=== PATIENT | male | born 1975 | race Caucasian/White ===

== ENCOUNTER 2019-01-23 13:34 | Emergency (ER) | payer SELFPAY ==
[~2019-01-23] VITALS: Wt 78.0 kg
[2019-01-23 13:36] VITALS: BP 118/76; PULSE 79; RESP 18
[2019-01-23] MEDS ORDERED: ACETAMINOPHEN 325 MG TAB PO ONE (14:30)
[2019-01-23] MEDS ORDERED: IBUPROFEN 600 MG TAB PO ONE (14:30)
--- NOTE | 2019-01-23 15:35 | ERD ---
ER Documentation Chief Complaint Chief Complaint LEFT ANKLE PAIN HPI 43-year-old male, presents the emergency department, complaining of acute left ankle pain after sustaining a forced inversion injury when he jumped a fence yesterday. The pain is dull, constant, 6/10, associated with decreased range of motion. The patient denies distal weakness, numbness or tingling. ROS All systems reviewed and are negative except as per history of present illness. Medications Home Meds Active Scripts Acetaminophen* (Tylenol*) 325 Mg Tablet, 2 TAB PO Q6 PRN for PAIN AND OR ELEVATED TEMP, #20 TAB Prov:DENI CURIEL MD 01/23/19 Ibuprofen* (Motrin*) 600 Mg Tab, 600 MG PO Q6H PRN for PAIN AND OR ELEVATED TEMP, #20 TAB Prov:DENI CURIEL MD 01/23/19 Allergies Allergies: Coded Allergies: No Known Allergy (Unverified , 01/23/19) PMhx/Soc Medical and Surgical Hx: pt denies Medical Hx, pt denies Surgical Hx Hx Alcohol Use: Yes (occasional) Hx Substance Use: Yes (marijuana) Hx Tobacco Use: No FmHx Family History: No diabetes, No coronary disease Physical Exam Vitals Vital Signs Date Temp Pulse Resp B/P (MAP) Pulse Ox O2 O2 Flow FiO2 Time Delivery Rate 01/23/19 98.1 79 18 118/76 99 13:36 (90) Physical Exam Patient alert, oriented, vital signs stable. HEAD: Normocephalic, atraumatic. EYES: PERRLA, EOMI, Sclera and conjunctiva appear normal. NOSE: Clear and patent nostrils. EARS: Canals clear, tympanic membranes WNL. MOUTH: normal lips and tongue, no oral lesions. THROAT: Normal oropharynx, no tonsillar exudates. NECK: Supple, No lymphadenopathy. Full ROM without pain or tenderness. HEART: RRR, no rubs, murmurs, clicks or gallops. LUNGS: Clear to auscultation. ABDOMEN: Soft, non-tender without masses or hepatosplenomegaly. EXTREMITIES: Left ankle: Bimalleolar edema and tenderness, full passive range of motion, distal neurovascular exam intact. BACK: Full ROM, no deformity, normal back exam NEURO: Cranial nerves grossly intact, no motor or sensory deficit SKIN: No rashes, no petechia. Results 24 hrs Current Medications Medications Dose Sig/Rom Start Time Status Last (Trade) Ordered Route PRN Stop Time Admin Dose Reason Admin 650 mg ONCE ONCE 01/23/19 DC 01/23/19 Acetaminophen PO 14:30 01/23/19 14:22 (Tylenol 14:31 Tab) Ibuprofen 600 mg ONCE ONCE 01/23/19 DC 01/23/19 (Motrin) PO 14:30 01/23/19 14:21 14:31 Patient: CASH VAZQUEZ : 1975 Age: 43 Sex: M MR #: [id number] DOS: 01/23/19 1410 Ordering MD: DENI CURIEL MD Location: [facility] Room/Bed: PROCEDURE: XR left ankle. CLINICAL INDICATION: Ankle pain. TECHNIQUE: Three views of the ankle were obtained. COMPARISON: None. FINDINGS: There is subtle cortical irregularity of medial process of the talus. Remaining osseous structures are intact. No evidence of dislocation. There is marked ankle soft tissue swelling, most notable medially. IMPRESSION: 1. Subtle cortical irregularity of medial process of the talus, nondisplaced fracture cannot be excluded. 2. Marked soft tissue swelling, most notable medially. Procedures/MDM Acute left ankle pain: no red flags. Differential diagnosis include but not limited to: Ankle sprain/strain, ligament injury, arthritis; low suspicion for fracture, dislocation, septic arthritis. Neurovascular exam grossly intact. no clinical findings suggestive of acute infectious process, no deformity, no rashes. Pertinent Data: X-rays: No fracture or dislocation Physical examination and clinical presentation consistent most likely with left ankle sprain. During the ED course the patient received treatment with short leg posterior splint and crutches presenting overall improvement of the symptoms. Results and clinical impression discussed with patient who agrees with management. The patient is stable to be treated outpatient and will be discharged home with recommendations for ice, rest and partial immobilization. NSAIDs 3 times daily for 5 days and close monitoring. The patient was instructed to follow up with the primary care provider in the next 48h. If symptoms persist, worsen or new symptoms develop, then patient should return to the ED immediately. Instructions explained and given to patient with acknowledgment and demonstrated understanding. Disclaimer: Inadvertent spelling and grammatical errors are likely due to EHR/dictation software use and do not reflect on the overall quality of patient care. Also, please note that the electronic time recorded on this note does not necessarily reflect the actual time of the patient encounter. Departure Diagnosis: Primary Impression: Left ankle sprain Condition: Stable Patient Instructions: Self-Care for Strains and Sprains Additional Instructions: Thank you very much for allowing us to participate in your care. Your health and safety is our top priority at [facility]. Call your primary care doctor TOMORROW for an appointment during the next 2-4 days and bring all the information provided. Have prescriptions filled and follow precisely the directions on the label. If the symptoms get worse and your provider is unavailable, return to the Emergency Department immediately. DENI CURIEL MD Jan 23, 2019 15:35
[2019-01-23] MEDS ORDERED: IBUP-1542 PO (15:36)
[2019-01-23] MEDS ORDERED: ACET325T33 PO (15:36)
== END 2019-01-23 16:51 | disposition home or self-care (01) ==
LOC: FTE 13:34
DX: S93.402A Sprain of unspecified ligament of left ankle, initial encounter (principal); X58.XXXA Exposure to other specified factors, initial encounter; Y92.9 Unspecified place or not applicable
CPT/HCPCS: 73610